=== PATIENT | male | born 1980 | race African-American/Black ===

== ENCOUNTER 2020-10-23 17:26 | Emergency (ER) | payer SELFPAY ==
[2020-10-23] MEDS ORDERED: Acetaminophen 500 MG TAB ONE (17:59)
[2020-10-23] MEDS ORDERED: Boostrix 0.5 ML (Tdap) VIAL ONE (17:59)
== END 2020-10-23 18:15 | disposition home or self-care (01) ==
LOC: MADERS 17:26
DX: S01.01XA Laceration without foreign body of scalp, initial encounter (principal); Z87.891 Personal history of nicotine dependence; W22.8XXA Striking against or struck by other objects, initial encounter
CPT/HCPCS: 12001; 90471; 90715